=== PATIENT | female | born 1955 | race Caucasian/White ===

== ENCOUNTER 2023-07-23 06:05 | Day surgery (SDC) | payer MEDICARE ==
[~2023-07-23 06:05] MED LIST: Acetaminophen 325 MG Tab PO ONE; Lactated Ringers 1,000 ML IV SCH; Morphine 8 MG, EPINEPHrine 0.3 MG, Cefuroxime 750 MG, Ketorolac 30 MG, Sodium Chloride ... PRN; Pregabalin 25 MG Cap PO ONE; Sodium Chloride 0.9% 10 ML Syringe FLUSH PRN; Sodium Chloride 0.9% 10 ML Syringe FLUSH SCH; oxyCODONE ER 10 MG TAB.ER PO ONE
[2023-07-23] MEDS ORDERED: fentaNYL 100 MCG/2 ML SDV ONE (06:57)
[2023-07-23] MEDS ORDERED: Propofol 200 MG/20 ML SDV ONE ×2 (06:57→08:13)
[2023-07-23] MEDS ORDERED: Midazolam 1 MG/ML 2 ML SDV ONE (06:57)
[2023-07-23] MEDS ORDERED: Lidocaine 2% 5 ML SDV ONE (06:58)
[2023-07-23 07:29] LABS: INR 0.94; PROTHROMBIN TIME 10.1 SECONDS (9.7-12.0)
[2023-07-23] MEDS ORDERED: Dexamethasone 4 MG/ML 5 ML MDV ONE (07:40)
[2023-07-23] MEDS ORDERED: Dexmedetomidine 200 MCG/2 ML SDV ONE (07:40)
[2023-07-23] MEDS ORDERED: EPINEPHrine 1 MG/ML SDV ONE (07:40)
[2023-07-23] MEDS ORDERED: Ropivacaine 0.5% 5 MG/ML 30 ML SDV ONE (07:42)
[2023-07-23] MEDS: Triamcinolone Acetonide 40 MG/ML 1 ML SDV ONE ×2 (07:59→08:44)
[2023-07-23] MEDS: Tranexamic Acid 1,000 MG/10 ML Vial ONE ×2 (08:00→08:30)
[2023-07-23] MEDS: Vancomycin 1 GM SDV ONE ×2 (08:00→08:30)
[2023-07-23] MEDS: Bupivacaine 0.25% 10 ML SDV ONE ×2 (08:00→08:44)
[2023-07-23] MEDS ORDERED: fentaNYL 100 MCG/2 ML SDV IVPUSH PRN (08:22)
[2023-07-23] MEDS ORDERED: Ondansetron 4 MG/2 ML SDV IVPUSH PRN (08:22)
[2023-07-23] MEDS ORDERED: HYDROmorphone 0.5 MG/0.5 ML Syringe IVPUSH PRN (08:22)
[2023-07-23] MEDS ORDERED: ceFAZolin 2 GM Vial ONE (08:40)
[2023-07-23] MEDS ORDERED: oxyCODONE 5 MG Tab PO PRN (09:36)
[2023-07-23 15:01] VITALS: PULSE 74
[2023-07-23 15:03] VITALS: BP 152/78
== END 2023-07-23 13:35 | disposition home or self-care (01) ==
LOC: JD.SDS 06:05
PROVIDERS: ATTEND Orthopaedic Surgery
DX: M17.0 Bilateral primary osteoarthritis of knee (principal); I10 Essential (primary) hypertension; I48.20 Chronic atrial fibrillation, unspecified; E11.9 Type 2 diabetes mellitus without complications; E78.00 Pure hypercholesterolemia, unspecified; K21.9 Gastro-esophageal reflux disease without esophagitis; Z86.010 Personal history of colon polyps; Z87.891 Personal history of nicotine dependence; Z79.82 Long term (current) use of aspirin; Z79.899 Other long term (current) drug therapy
CPT/HCPCS: 0055T; 27447; 36415; 73560; 85610; 85730; 97110; 97116; 97161; A9270; C1713; C1776; J0171; J0690; J0697; J1100; J1885; J2250; J2270; J2704; J2795; J3010; J3301; J3370; J3490; J7030; J7120; 01402